=== PATIENT | female | born 2000 | race African-American/Black ===

== ENCOUNTER 2021-05-05 16:43 | Emergency (ER) | payer MEDICAID ==
[~2021-05-05] VITALS: Ht 165.1 cm; Wt 150.0 kg
[2021-05-05 20:00] VITALS: BP 128/75
== END 2021-05-05 20:20 | disposition home or self-care (01) ==
LOC: ER 16:43
DX: M54.9 Dorsalgia, unspecified (principal); V43.52XA Car driver injured in collision with other type car in traffic accident, initial encounter; Y93.89 Activity, other specified; Y92.410 Unspecified street and highway as the place of occurrence of the external cause
CPT/HCPCS: 72070; 72100; 81025; 99284

== ENCOUNTER 2021-06-11 11:07 | Emergency (ER) | payer MEDICAID ==
[~2021-06-11] VITALS: Ht 165.1 cm; Wt 108.0 kg
[2021-06-11] MEDS ORDERED: ACETAMINOPHEN 325MG TABLET PO ONE (13:15)
[2021-06-11] MEDS ORDERED: IBUPROFEN 400MG TABLET PO ONE (13:15)
[2021-06-11] MEDS ORDERED: NAPR-681 MT (14:55)
[2021-06-11] MEDS ORDERED: METH-773 MT (14:55)
[2021-06-11 15:07] VITALS: BP 121/63
== END 2021-06-11 15:11 | disposition home or self-care (01) ==
LOC: ER 11:07
DX: S09.8XXA Other specified injuries of head, initial encounter (principal); S39.012A Strain of muscle, fascia and tendon of lower back, initial encounter; V43.52XA Car driver injured in collision with other type car in traffic accident, initial encounter; Y93.89 Activity, other specified; Y92.410 Unspecified street and highway as the place of occurrence of the external cause
CPT/HCPCS: 72100; 81025; 99284

== ENCOUNTER 2021-06-15 08:24 | Emergency (ER) | payer MEDICAID ==
[~2021-06-15] VITALS: Ht 165.1 cm; Wt 100.0 kg
[~2021-06-15 08:24] MED LIST: METH-773 MT; NAPR-681 MT
[2021-06-15] MEDS ORDERED: KETOROLAC 60MG/2ML VIAL IM ONE (09:00)
[2021-06-15] MEDS ORDERED: HYDR-4001 MT (10:05)
[2021-06-15 10:20] VITALS: BP 121/75
== END 2021-06-15 10:22 | disposition home or self-care (01) ==
LOC: ER 08:24
DX: S92.252A Displaced fracture of navicular [scaphoid] of left foot, initial encounter for closed fracture (principal); V49.60XA Unspecified car occupant injured in collision with unspecified motor vehicles in traffic accident, initial encounter; Y93.89 Activity, other specified; Y92.410 Unspecified street and highway as the place of occurrence of the external cause
CPT/HCPCS: 29515; 73630; 73650; 81025; 96372; 99284; J1885; Z7610

== ENCOUNTER 2021-08-04 08:24 | Emergency (ER) | payer MEDICAID ==
[~2021-08-04] VITALS: Ht 157.5 cm; Wt 111.0 kg
[~2021-08-04 08:24] MED LIST changes: +HYDR-4001 MT
[2021-08-04 08:31] VITALS: BP 131/93
== END 2021-08-04 11:14 | disposition home or self-care (01) ==
LOC: ER 08:24
DX: M79.672 Pain in left foot (principal); Z79.899 Other long term (current) drug therapy
CPT/HCPCS: 73630; 99283

== ENCOUNTER 2022-03-17 11:25 | Emergency (ER) | payer MEDICAID ==
[~2022-03-17] VITALS: Ht 157.5 cm; Wt 118.0 kg
[2022-03-17 11:41] VITALS: BP 139/67
[2022-03-17] MEDS ORDERED: FURO20TA4 MT (16:43)
[2022-03-17] MEDS ORDERED: NAPR-681 MT (16:43)
== END 2022-03-17 17:02 | disposition home or self-care (01) ==
LOC: ER 11:25
DX: R22.42 Localized swelling, mass and lump, left lower limb (principal); E66.9 Obesity, unspecified; Z79.899 Other long term (current) drug therapy; R42 Dizziness and giddiness; R53.1 Weakness
CPT/HCPCS: 81025; 93971; 99284

== ENCOUNTER 2022-06-02 18:46 | Emergency (ER) | payer MEDICAID ==
[~2022-06-02] VITALS: Ht 157.5 cm; Wt 118.0 kg
[~2022-06-02 18:46] MED LIST changes: +FURO20TA4 MT
[2022-06-02] MEDS ORDERED: ACETAMINOPHEN 325MG TABLET PO ONE (20:30)
[2022-06-02] MEDS ORDERED: ONDANSETRON 4MG ODT PO ONE (20:30)
[2022-06-02 21:04] LABS: CLARITY URINE CLEAR (CLEAR); COLOR URINE YELLOW (YELLOW); KETONES URINE NEGATIVE (NEGATIVE); LEUKOCYTE ESTERASE URINE 1+ (NEGATIVE); NITRITE URINE NEGATIVE (NEGATIVE); OCCULT BLOOD URINE NEGATIVE (NEGATIVE); PH URINE 6.5 (4.5-8.0); PROTEIN URINE NEGATIVE (NEGATIVE); UROBILINOGEN URINE 0.2 E.U./dL (0.2-1.0)
[2022-06-02 21:37] LABS: BASOPHILS % 0.6 % (0.0-2.0); EOSINOPHILS % 0.6 % (0.0-5.0); HEMATOCRIT. 35.7 % (36.0-48.0); HEMOGLOBIN. 12.1 g/dL (12.0-16.0); LYMPHOCYTES % 23.1 % (20.0-50.0); MEAN CORPUSCULAR HEMOGLOBIN 29.4 pg (28.0-32.0); MEAN CORPUSCULAR VOLUME 86.8 fL (81.0-99.0); MEAN PLATELET VOLUME 7.7 fl (7.4-10.4); MONOCYTES % 8.3 % (2.0-8.0); NEUTROPHILS % 67.4 % (40.0-76.0); PLATELET 272 x1000/uL (130-400); RED BLOOD CELL COUNT 4.11 mill/uL (4.2-5.4); RED CELL DISTRIBUTION WIDTH 16.1 % (11.6-14.6)
[2022-06-02 21:45] LABS: CHLORIDE 104 mEq/L (98-107)
[2022-06-02 22:10] LABS: B-HCG QUANTITATIVE 46596 mIU/mL (<3)
[2022-06-02] MEDS ORDERED: TOPUD MT (22:54)
[2022-06-02] MEDS ORDERED: CEPH500T MT (22:54)
[2022-06-02 23:23] VITALS: BP 108/75
== END 2022-06-02 23:24 | disposition home or self-care (01) ==
LOC: ER 18:46
DX: O23.31 Infections of other parts of urinary tract in pregnancy, first trimester (principal); Z3A.10 10 weeks gestation of pregnancy; R51.9 Headache, unspecified; N39.0 Urinary tract infection, site not specified; Z79.899 Other long term (current) drug therapy
CPT/HCPCS: 36415; 76801; 80053; 81003; 81025; 84702; 85025; 99284; Q0162